=== PATIENT | male | born 1980 | race Caucasian/White ===

== ENCOUNTER 2016-11-29 23:39 | Emergency (ER) | payer OTHER | END 2016-11-30 01:21 | disposition home or self-care (01) | LOC: ER 23:39 | DX: S20.229A Contusion of unspecified back wall of thorax, initial encounter (principal); W01.0XXA Fall on same level from slipping, tripping and stumbling without subsequent striking against object, initial encounter ==

== ENCOUNTER 2017-01-14 17:38 | Emergency (ER) | payer OTHER | END 2017-01-14 19:08 | disposition home or self-care (01) | LOC: ER 17:38 | DX: S80.01XA Contusion of right knee, initial encounter (principal); W01.0XXA Fall on same level from slipping, tripping and stumbling without subsequent striking against object, initial encounter; Y92.019 Unspecified place in single-family (private) house as the place of occurrence of the external cause | CPT/HCPCS: 73564; 99070; 99283 ==